=== PATIENT | male | born 1985 | race Caucasian/White ===

== ENCOUNTER 2018-06-03 09:33 | Emergency (ER) | payer SELFPAY ==
[~2018-06-03] VITALS: Ht 170.2 cm; Wt 90.7 kg
[~2018-06-03 09:33] MED LIST: CIPRO250 MG PO; COL100 PO; FLA500 PO; NORCO1 TA2 PO
[2018-06-03 09:35] VITALS: Ht 170.2 cm; Wt 90.7 kg
[2018-06-03 11:47] VITALS: BP 131/92
== END 2018-06-03 11:47 | disposition home or self-care (01) ==
LOC: ED 09:33
DX: S82.51XA Displaced fracture of medial malleolus of right tibia, initial encounter for closed fracture (principal); S82.831A Other fracture of upper and lower end of right fibula, initial encounter for closed fracture; S93.01XA Subluxation of right ankle joint, initial encounter; S00.81XA Abrasion of other part of head, initial encounter; Z98.890 Other specified postprocedural states; W01.0XXA Fall on same level from slipping, tripping and stumbling without subsequent striking against object, initial encounter; Y93.89 Activity, other specified; Y99.8 Other external cause status; Y92.89 Other specified places as the place of occurrence of the external cause
CPT/HCPCS: J3010; Q0092

== ENCOUNTER 2018-10-09 04:15 | Emergency (ER) | payer OTHER | END 2018-10-09 05:39 | disposition other institution (70) | LOC: ED 04:15 | DX: Z02.89 Encounter for other administrative examinations (principal) ==

== ENCOUNTER 2018-10-09 04:15 | Emergency (ER) | payer SELFPAY ==
[~2018-10-09] VITALS: Ht 167.6 cm; Wt 97.5 kg
[2018-10-09 04:17] VITALS: Ht 167.6 cm; Wt 97.5 kg
[2018-10-09 05:39] VITALS: BP 143/93
== END 2018-10-09 05:39 | disposition other institution (70) ==
LOC: ED 04:15
DX: S82.891D Other fracture of right lower leg, subsequent encounter for closed fracture with routine healing (principal); X58.XXXD Exposure to other specified factors, subsequent encounter